=== PATIENT | female | born 1960 | race Caucasian/White ===

== ENCOUNTER 2025-05-18 18:10 | Inpatient (IN) | payer MEDICARE, MEDICAID ==
[~2025-05-18] VITALS: Ht 162.6 cm; Wt 55.8 kg
[2025-05-18 19:02] VITALS: BP 149/65; PULSE 87; RESP 16; TEMP 36.7; O2SAT 100
[2025-05-18] MEDS ORDERED: HYDRALAZINE 20MG/ML VIAL IV PRN (19:15)
[2025-05-18] MEDS ORDERED: DEXTROSE 50% WATER 50ML SYRINGE IV PRN (19:15)
[2025-05-18] MEDS ORDERED: NALOXONE HCL 0.4MG/ML 1ML VIAL IV PRN (19:15)
[2025-05-18] MEDS ORDERED: ONDANSETRON HCL 4MG/2ML INJ IV PRN (19:15)
[2025-05-18 19:20] VITALS: BP 152/75; PULSE 87; RESP 18; TEMP 36.14
[2025-05-18] MEDS: INSULIN LISPRO 100 UNITS/ML SUBCUT SCH (19:49)
[2025-05-18] MEDS: BLOOD SUGAR DIAGNOSTIC STRIP TEST SCH (21:00)
[2025-05-18] MEDS: PANTOPRAZOLE 40MG DR TABLET PO SCH (21:19)
[2025-05-18] MEDS: ASPIRIN 325MG EC TABLET PO SCH (21:19)
[2025-05-18] MEDS: GABAPENTIN 300MG CAPSULE PO SCH (21:23)
[2025-05-19] MEDS: HYDROCODONE/ACETAMINOPHEN 7.5/325MG TABLET PO PRN (06:36)
[2025-05-19 07:38] LABS: BASOPHILS % 0.1 % (0.0-2.0); EOSINOPHILS % 2.7 % (0.0-5.0); HEMATOCRIT. 27.6 % (36.0-48.0); HEMOGLOBIN. 8.3 g/dL (12.0-16.0); LYMPHOCYTES % 21.1 % (20.0-50.0); MEAN PLATELET VOLUME 8.7 fl (7.4-10.4); MONOCYTES % 5.3 % (2.0-8.0); NEUTROPHILS % 70.8 % (40.0-76.0); PLATELET 245 x1000/uL (130-400); RED BLOOD CELL COUNT 4.01 mill/uL (4.2-5.4); RED CELL DISTRIBUTION WIDTH 21.3 % (11.6-14.6)
[2025-05-19 08:00] VITALS: BP 147/73; PULSE 91; RESP 16; TEMP 36.6; O2SAT 100
[2025-05-19] MEDS: EMPAGLIFLOZIN 25MG TABLET PO SCH (09:58)
[2025-05-19] MEDS: FLUOXETINE HCL 20MG CAPSULE PO SCH (11:37)
[2025-05-19 12:04] LABS: CREATININE 0.5 mg/dL (0.6-1.0); UREA NITROGEN BLOOD 12 mg/dL (9-23)
[2025-05-19 12:06] LABS: ASPARTATE AMINOTRANSFERASE 428 IU/L (<34); BILIRUBIN TOTAL 0.3 mg/dL (0.1-1.0)
[2025-05-19 14:03] LABS: PROTEIN TOTAL 5.6 g/dL (6.0-8.3)
[2025-05-19] MEDS: POTASSIUM CHLORIDE 20MEQ TABLET SR PO SCH (14:39)
[2025-05-19 20:00] VITALS: BP 130/69; PULSE 74; RESP 20; TEMP 36.4; O2SAT 96
[2025-05-20 08:00] VITALS: BP 148/73; PULSE 92; RESP 18; TEMP 37.1; O2SAT 94
[2025-05-20 20:00] VITALS: BP 144/70; PULSE 90; RESP 18; TEMP 36.9; O2SAT 97
[2025-05-21 08:00] VITALS: BP 154/74; PULSE 90; RESP 18; TEMP 37.5; O2SAT 100
[2025-05-21] MEDS: ACETAMINOPHEN 325MG TABLET PO PRN (09:09)
[2025-05-21] MEDS: ENOXAPARIN 30MG/0.3ML SYR SUBCUT SCH (09:12)
[2025-05-21] MEDS: CLONIDINE 0.1MG TABLET PO PRN (18:25)
[2025-05-21] MEDS: TRAMADOL 50MG TABLET PO PRN (18:25)
[2025-05-21 20:00] VITALS: BP 114/62; PULSE 86; RESP 20; TEMP 37.5; O2SAT 99
[2025-05-21] MEDS: DIPHENHYDRAMINE 50MG/ML VIAL IV PRN (23:22)
[2025-05-22 08:00] VITALS: BP 148/60; PULSE 87; RESP 18; TEMP 36.2; O2SAT 97
[2025-05-22] MEDS: FLUCONAZOLE 100MG TABLET PO SCH (09:25)
[2025-05-22 20:00] VITALS: BP 148/52; PULSE 94; RESP 18; TEMP 36.8; O2SAT 95
[2025-05-22] MEDS: TRAZODONE HCL 50MG TABLET PO SCH (21:24)
[2025-05-23 08:15] VITALS: BP 113/60; PULSE 78; RESP 18; TEMP 36.7; O2SAT 96
[2025-05-23] MEDS: DULOXETINE HCL 60MG DR CAPSULE PO SCH (09:39)
[2025-05-23 17:30] LABS: ASPARTATE AMINOTRANSFERASE 22 IU/L (<34); BILIRUBIN DIRECT 0.1 mg/dL (<=3.0); BILIRUBIN TOTAL 0.4 mg/dL (0.1-1.0); PROTEIN TOTAL 6.1 g/dL (6.0-8.3)
[2025-05-23 20:00] VITALS: BP 122/54; PULSE 83; RESP 20; TEMP 37.3; O2SAT 98
[2025-05-24 08:00] VITALS: BP 129/56; PULSE 84; RESP 18; TEMP 36.3
[2025-05-24] MEDS: VISCOUS LIDOCAINE 2% 15 ML UDC MM PRN (13:59)
[2025-05-24 20:00] VITALS: BP 131/71; PULSE 81; RESP 20; TEMP 36.7; O2SAT 97
[2025-05-24] MEDS: INSULIN GLARGINE 100 UNITS/ML SUBCUT SCH (21:40)
[2025-05-25] MEDS: ALENDRONATE SODIUM 35MG TABLET PO SCH (07:13)
[2025-05-25 08:00] VITALS: BP 117/75; PULSE 83; RESP 18; TEMP 36.4; O2SAT 98
[2025-05-25] MEDS: KETOROLAC 30MG/ML VIAL IV PRN (12:16)
[2025-05-25 20:00] VITALS: BP 118/76; PULSE 82; RESP 18; TEMP 36.7; O2SAT 99
[2025-05-26 08:00] VITALS: BP 130/66; PULSE 83; RESP 16; TEMP 36.6; O2SAT 99
[2025-05-26] MEDS: TRAMADOL 50MG TABLET PO PRN (11:14)
[2025-05-26 19:33] VITALS: BP 117/64; PULSE 87; RESP 16; TEMP 37; O2SAT 97
[2025-05-26] MEDS: INSULIN GLARGINE 100 UNITS/ML SUBCUT SCH (22:28)
[2025-05-27 08:00] VITALS: BP 125/63; PULSE 80; RESP 18; TEMP 36.6; O2SAT 97
[2025-05-27 20:00] VITALS: BP 140/48; PULSE 86; RESP 18; TEMP 36.2; O2SAT 97
[2025-05-28 08:00] VITALS: BP 120/61; PULSE 85; RESP 18; TEMP 36.9; O2SAT 99
[2025-05-28] MEDS ORDERED: ASPI-867 PO (10:38)
[2025-05-28] MEDS ORDERED: TRAZ-251 PO (10:38)
[2025-05-28] MEDS ORDERED: EMPA25TA PO (10:38)
[2025-05-28] MEDS ORDERED: LANTUSUD SUBCUT (10:38)
[2025-05-28 11:01] VITALS: BP 120/61; PULSE 85; RESP 18; TEMP 98.4
[2025-05-28] MEDS ORDERED: NALOXONE HCL 0.4MG/ML VIAL IV PRN (15:30)
== END 2025-05-28 14:03 | disposition home health service (06) | DRG 560 ==
PROVIDERS: ADMIT Psychiatry & Neurology Neurology; ATTEND Internal Medicine
DX: S72.144D Nondisplaced intertrochanteric fracture of right femur, subsequent encounter for closed fracture with routine healing (principal); B37.0 Candidal stomatitis; F03.93 Unspecified dementia, unspecified severity, with mood disturbance; F03.94 Unspecified dementia, unspecified severity, with anxiety; F33.1 Major depressive disorder, recurrent, moderate; E11.9 Type 2 diabetes mellitus without complications; I10 Essential (primary) hypertension; E87.6 Hypokalemia; D64.9 Anemia, unspecified; F41.1 Generalized anxiety disorder; K12.1 Other forms of stomatitis; K12.30 Oral mucositis (ulcerative), unspecified; W18.39XD Other fall on same level, subsequent encounter
CPT/HCPCS: 36415; 80053; 80076; 82962; 83036; 84134; 84443; 85025; 85651; 86038; 93005; 97110; 97116; 97162; 97166; 97530; 97535; 97542; A4606; J1200; J1650; J1815; J1885